=== PATIENT | female | born 2000 | race Caucasian/White ===

== ENCOUNTER → 2022-08-03 11:34 | Outpatient (BNVA) | payer OTHER, SELFPAY | PROVIDERS: Visit Provider Advanced Practice Midwife ==

== ENCOUNTER 2024-07-16 09:21 | Outpatient (AMB) | payer OTHER, SELFPAY ==
[2024-07-16 09:50] VITALS: BP 108/64; PULSE 83; TEMP 36.8; O2SAT 99; BMI 42.7
--- NOTE | 2024-07-16 09:50 | AM.OFFWIN_ITS ---
Intake Vital Signs 07/16/24 09:50 Height 5 ft 4 in Weight 248 lb 8 oz BMI 42.7 BP 108/64 Blood Pressure Location Lt brachial Position Sitting Pulse 83 Pulse Source Pulse Oximeter Temp 98.3 F Temp Source Oral Pulse Oximetry (%) 99 Oxygen Delivery Method Room Air Intake Visit Reasons: EP-sore throat, cough, chest pain Intake Note: Pt presents to the office today for c/o cough, and chest congestion that started this morning. Patient Tobacco Use Status: Never used Tobacco Allergies amoxicillin Allergy (Unknown, Verified 07/16/24 09:51) Rash Hives Penicillins [PENICILLINS] Allergy (Unknown, Verified 07/16/24 09:51) HIVES kiwi Allergy (Verified 07/16/24 09:51) hives, itchy venlafaxine Adverse Reaction (Intermediate, Verified 07/16/24 09:51) migraines apple Adverse Reaction (Verified 07/16/24 09:51) lip swollen Peanuts Allergy (Unknown, Uncoded 07/16/24 09:51) Hives, Rash HPI HPI Comments History of Present Illness Details History - The patient is a 24-year-old female pr esenting with chest tightness and cough x1 day. - Sudden onset of symptoms this morning at 5:30 with pain upon coughing, despite the use of a rescue inhaler. - No fever recorded, but mild shortness of breath and runny nose are present. - Job fatigue noted though not outside o f ordinary conditions due to her workload. - Denial of common gastrointestinal symp toms - Sick contact at home with a cough - Symptomatology began before sleeping l ast night but became significant upon waking. - Previous asthma-related pneumonia mayra bill with prednisone during early COVID- 19 pandemic.. Physical Exam General: Cooperative, healthy appearing, comfortable and no acute distress Orientation/consciousness: Patient oriented x3 Limitations: No limitations Head: Normal to inspection Ears: Hearing grossly normal bilaterally, external ears normal and TM's normal bilaterally Nose: Normal external nose present, Normal nares present and Yes nasal discharge present Face and sinus: Normal facial exam and Yes sinuses nontender Mouth: Normal oral and palatal mucosa present and moist mucous membranes Throat: Yes tonsils normal, Yes uvula midline. Posterior oropharynx erythema Eyes: Appearance normal, both eyes and all related structures Neck: Normal visual inspection Respiratory: Clear to auscultation bilaterally. Normal respiratory effort, able to speak in complete sentences, no respiratory distress, not tachypneic, no tripod positioning and no use of accessory muscles Cardiovascular: Regular rate and rhythm. Normal S1 and S2 Skin: No rashes or lesions noted Neuro: Patient oriented x3 Extremities: Normal to inspection and Yes no clubbing, cyanosis or edema [facility] Medical History (Updated 07/16/24 @ 10:19 by Za Carlos PA-C) Morbid obesity Mild intermittent asthma in adult without complication Generalized anxiety disorder Mixed dyslipidemia Low back pain Family history of thyroid disease Hypertriglyceridemia Family History (System 07/15/24 @ 12:47 by Za Henderson) Maternal Grandmother Hypertriglyceridemia Thyroid disease Diabetes mellitus Social History (System 07/15/24 @ 12:47 by Za Henderson) Housing: House Alcohol intake: current Alcohol intake frequency: holidays/special occasions only Patient Tobacco Use Status: Never used Tobacco e-Cigarette/Vaping Use: Never Used service: No Current occupational status: employed 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, 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 Flu, covid and RSV testing has been sent. The patient has been advised to start a six-day prednisone taper to manage the acute asthma flare presenting as chest tightness and cough, reflecting her past favorable response. The daily dosage is to be taken in the morning for maximum effectiveness and reduced insomnia risk. Testing for viral infections will clarify any additional treatment needs, with results expected shortly. Nebulizer use is endorsed for acute dyspnea management. Further antiviral intervention is deliberated given potential side effects unless symptom severity indicates necessity. The asthma exacerbation management will be adjusted upon feedback from test outcomes. Patient was informed and verbally consented to the use of an ambient scribe for clinic note documentation during this visit Orders: Orders SARS-CoV2/FLU/RSV Today R09.89 - Other specified symptoms and signs involving the circulatory and respiratory systems Medications: New methylprednisolone PO PER PKG DIR for 6 days 21 ea 0RF Coding Level of Care Code Est Pt Level 3 (24874) Diagnoses Acute viral syndrome B34.9
--- OUTSIDE RECORDS SUMMARY | 2024-07-16 10:20 | XMS_ITS | Encounter Summary ---
Author Organization [facility] Address [address] [place] [address] Phone Care Team Providers Care Car Salesperson Name Role Phone Unavailable Primary Care Provider Unavailabl e Reason for Visit * Reason Comments Med Refill Encounter Details Date Type Department Care Team (Late st Contact Info) Description 06/09/2017 Refill [facility] [place] [address] [place] [address] Shanta Ng NP 299 [facility] [address] [place] [address] Anxiety Social History Tobacco Use Types Packs/Day Years Used Date Smoking Tobacco: Never Smokeless Tobacco: Never Comments:Never smoker Alcohol Use Standard Drinks/Week Comments No 0 (1 standard drink = 0.6 oz pur e alcohol) Comments No Sex and Gender Information Value Date Recorded Sex Assigned at Not on file Legal Sex Female 5:16 PM EDT Gender Identity Not on file Sexual Orientation Not on file documented as of this encounter Miscellaneous Notes * Telephone Encounter - Guille Hernandez LPN - 06/11/2017 11:43 AM EST Pharm requesting refill on fluoxetine 20 mg. Lm for pt to call back. Pt needs to schedule apt in June for follow up also looks like script was only sent for 30 days in March with no refill. Consuelo like to know if pt was taking consistently? Pt states she started taking prozac on 05/13/17. Last PE 04/27/17. documented in this encounter Plan of Treatment Not on file documented as of this encounter Visit Diagnoses Diagnosis Anxiety Anxiety state, unspecified documented in this encounter
--- OUTSIDE RECORDS SUMMARY | 2024-07-16 10:20 | XMS_ITS | Clinical Summary ---
Author Organization [facility] Address [address] [place] [phone] Phone Care Team Providers Care Dado Operator Name Role Phone Unavailable Primary Care Provider Unavailabl e Allergies Active Allergy Reactions Criticality Noted Date Comments Amoxicillin Hives Peanuts (Food) Hives Medications FLUoxetine 20 MG capsuleIndication s:Anxiety Take 1 capsule (20 mg total) by mouth every morning. 30 capsule 2 8 Active Additional Information Patient not taking.Reported on 01/15/2018 albuterol HFA 108 (90 Base) MCG/ACT inhalerIndication s:Mild intermittent asthma without complication Inhale 2 puffs every 4 (four) hours as needed for wheezing or shortness of breath. 1 Units 8 Active Additional Information Patient not taking.Reported on 01/15/2018 Misc. Devices (WRIST BRACE) miscIndications:R ight wrist pain Soft semi-flexible right wrist brace 1 each 8 Active Additional Information Patient not taking.Reported on 05/14/2018 levonorgestrel-et hinyl estradiol 0.15-0.03 MG per tabletIndications :Encounter for surveillance of contraceptive pills,Dysmenorrhe a Take 1 tablet by mouth once daily. 28 tablet 12 9 Active Active Problems Problem Noted Date Diagnosed Date Refused influenza vaccine 04/25/2018 Reactive depression 10/03/2016 Family disruption 10/03/2016 Other hyperlipidemia 06/28/2016 Adjustment reaction with anxiety 01/27/2015 Childhood obesity 11/16/2011 Other atopic dermatitis 11/16/2011 Mild intermittent asthma without complication Assessment & Plan (02/13/2017 6:13 PM EDT): stable Resolved Problems Problem Noted Date Diagnosed Date Resolved Date Cellulitis of right external ear 05/26/2017 06/06/2017 Immunizations Immunization Administration Dates Next Due DTaP 5 04/06/2003, 1,1999, 000,1999 H1N1 03/02/2009 HPV, Quadrivalent 11/16/2011,12/06/2010,09/14/19 11 Hep A, ped/adol 05/23/2013,09/13/2010 Hep B, ped/adol 04/02/2000,1999,1999 Hib (PRP-T) 07/09/2000, 0,1999, 000 IPV 04/06/2003, 1,1999, 000 Influenza, injectable, quadrivalent 03/01/2015 Influenza, injectable, trivalent 04/26/2009,03/30 MMR 04/06/2003,04/02/2000 Meningococcal B Trumenba 05/14/2018 Meningococcal Conj (Menactra) MCV4P 04/27/2017,0 09/13/2010 Pneumococcal Conjugate 07/09/2000,04/02/2000,11/1999 Tdap 09/13/2010 Varicella 07/28/2008,04/02/2000 Family History Medical History Relation Name Comments Diabetes Mother nery Relation Name Status Comments Father [place] Alive Father: acid re flux Maternal Grandfather Materna l grandfather: Cancer -liver Mother nery Alive Mother: Obesity , Asthma Other Family history of *Heart Disease, No family history of *CVA/Stroke, Family history of *Sudden /OK under 55, Family history of aneurysm, No family history of *Dental caries Paternal Grandfather Alive Paterna l grandfather: Cancer Paternal Grandmother Alive Korey l grandmother: Heart disease Social History Tobacco Use Types Packs/Day Years Used Date Smoking Tobacco: Never Smokeless Tobacco: Never Tobacco Cessation:Counseling Given: Yes Comments:Never smoker Alcohol Use Standard Drinks/Week Comments No 0 (1 standard drink = 0.6 oz pur e alcohol) Hunger/Food Answer Date Recorded No 05/15/2018 Stable Housing Answer Date Recorded 0 05/15/2018 Transportation Concerns Answer Date Rec orded No 05/15/2018 Hazards in Home Answer Date Recorded No 05/15/2018 Financing Utilities Answer Date Recorde d No 05/15/2018 Safety at Home Answer Date Recorded No 05/15/2018 Outside Support Answer Date Recorded No 05/15/2018 Understanding Health Concerns Answer Da te Recorded No 05/15/2018 Financing Health Concerns Answer Date R ecorded No 05/15/2018 Missing School or Work Answer Date Rom rded No 05/15/2018 Comments No Sex and Gender Information Value Date Recorded Sex Assigned at Not on file Legal Sex Female 5:16 PM EDT Gender Identity Not on file Sexual Orientation Not on file Last Filed Vital Signs Vital Sign Reading Time Taken Comments Blood Pressure 122/74 05/14/2018 8:28 AM EST Pulse 67 05/14/2018 8:28 AM EST Temperature 36.7 ??C (98 ??F) 01/15/2018 3:39 PM EDT Respiratory Rate - - Oxygen Saturation - - Inhaled Oxygen Concentration - - Weight 93 kg (205 lb) 05/14/2018 8:28 AM EST Height 163.8 cm (5' 4.5 ) 05/14/2018 8:28 AM EST Body Mass Index 34.64 05/14/2018 8:28 AM EST Plan of Treatment Health Maintenance Due Date Last Done Comments Men B Vaccine (2 of 2 - Trum enba SCDM 2-dose series) 11/11/2018 05/14/2018 DTaP,Tdap,and Td Vaccines (7 - Td or Tdap) 09/13/2020 09/13/2010, 04/06/2003, 10/01/2000, Additional history exists Influenza Vaccines (#1) 2023 03/01/20 15, 04/26/2009, 04/12/2006 COVID-19 Vaccine (2023-2 5 season) 2023 Hepatitis B Vaccines Completed 04/02/2000, 1999, 1999 HIB Vaccines Completed 07/09/2000, 05/1999, 1999, Additional history exists Pneumococcal Vaccine Completed 07/09/2000, 04/02/2000, 01/06/2000 IPV Vaccines Completed 04/06/2003, 07/2000, 1999, Additional history exists MMR Vaccines Completed 04/06/2003, 04/02/2000 Varicella Vaccines Completed 07/28/2008, 04/02/2000 HPV Vaccines Completed 11/16/2011, 08/12/2010, 09/13/2010 Hepatitis A Vaccines Completed 05/23/2013, 09/14/19 11 Meningococcal Vaccine Completed 04/27/2017, 011 Procedures * Due to [facility] law, this organization might not be sharing sensitive test results. Procedure Name Priority Date/Time Associated Diagnosis Comments CHLAMYDIA AND GONORRHEA, AMPLIFIED Routine 05/14/2018 8:45 AM EST Screening examination for bacterial and spirochetal disease from Last 3 Months or Most Recently Relevant to Health Maintenance Results * Due to [place] law, this organization might not be sharing sensitive test results. * Chlamydia and Gonorrhoea, Amplified (05/14/2018 8:45 AM EST) Chlamydia Trachomatis, DNA Probe NEGATIVE (NEG) [facility] Comment: No Chlamydia Trachomatis RNA detected in this patient's sample ? (REFERENCE RANGE/NORMAL VALUE: NOT DETECTED) ? Note: This test uses teen counselor- mediated amplification method to detect rRNA from C. Trachomatis URINE GC AMP PROBE NEGATIVE (NEG) [facility] Comment: No Neisseria Gonorrhoeae RNA detected in this patient's sample ? (REFERENCE RANGE/NORMAL VALUE: NOT DETECTED) ? NOTE: This test uses teen counselor-mediated amplification method to detect rRNA from N.Gonorrhoeae. A negative result does not preclude infection. In the case of a negative urine result, testing of an endocervical(female) or urethral (male) specimen is recommended if there is high clinical suspicion of infection. Due to very high sensitivity of Nucleic Acid Amplification Test, false positive results may occur. Therefore, specimen handling is extremely important. In patients in whom the disease is unlikely, additional sample for testing should be considered after an initial positive result. The performance characteristics of this test have not been evaluated in children. The Aptima Combo2 assay is not intended for the evaluation of suspected sexual abuse or for other medico-legal indications. The ordering provider should assess if the patient had consensual sex without risk of sexual abuse. Consult the [facility] if needed. Contact phone number . Therapeutic failure or success cannot be determined with the Aptima Combo2 assay since nucleic acid may persist following appropriate antimicrobial therapy. The Centers for Disease Control and Prevention (CDC) recommends confirmatory retesting using culture or a different nucleic acid amplification test when positive results occur, if indicated. Testing performed or reported by [facility], a Service of [facility], [facility] [place] [address] CLIA [id number] Thomas Walden MD, Engineering Specialist Urine 05/14/2018 8:45 AM EST 05/14/2018 10:24 PM EST us Shanta Ng NP LAB MICROBIOLOGY - GENERAL ORDER GENESIS Final Result [facility] from Last 3 Months or Most Recently Relevant to Health Maintenance Insurance [facility] NON [facility] PPO
--- OUTSIDE RECORDS SUMMARY | 2024-07-16 10:20 | XMS_ITS | Encounter Summary ---
Author Organization [facility] Address [address] [place] [phone] Phone Care Team Providers Care Extension Edger Name Role Phone Unavailable Primary Care Provider Unavailabl e Encounter Details Date Type Department Care Team (Late st Contact Info) Description 09/26/2016 Documentation [facility] [place] [address] Family Medicine, Physician [address] [place] [address] [phone] Social History Tobacco Use Types Packs/Day Years Used Date Smoking Tobacco: Never Assessed Comments Unknown Sex and Gender Information Value Date Recorded Sex Assigned at Not on file Legal Sex Female 5:16 PM EDT Gender Identity Not on file Sexual Orientation Not on file documented as of this encounter Plan of Treatment Not on file documented as of this encounter Visit Diagnoses Not on filedocumented in this encounter
--- OUTSIDE RECORDS SUMMARY | 2024-07-16 10:21 | XMS_ITS | Clinical Summary ---
Author Organization [facility] Address [address] [place] [address] Care Team Providers Care Donation Worker Name Role Phone Unavailable Primary Care Provider Unavailabl e Social History Tobacco Use Types Packs/Day Years Used Date Smoking Tobacco: Never Assessed Comments Unknown Sex and Gender Information Value Date Recorded Sex Assigned at Not on file Legal Sex Female 10:57 AM EST Gender Identity Not on file Sexual Orientation Not on file Last Filed Vital Signs Vital Sign Reading Time Taken Comments Blood Pressure - - Pulse - - Temperature - - Respiratory Rate - - Oxygen Saturation - - Inhaled Oxygen Concentration - - Weight 104 kg (230 lb) 01/24/2023 8:45 AM EDT Height 162.6 cm (5' 4 ) 01/24/2023 8:45 AM EDT Body Mass Index 39.48 01/24/2023 8:45 AM EDT Plan of Treatment Health Maintenance Due Date Last Done Comments HPV Vaccines (1 - 3-dose series) 2014 DTaP,Tdap,and Td Vaccines (1 - Tdap) 2018 Hepatitis B Vaccines (1 of 3 - 19+ 3-dose series) 2018 Cervical Cancer Screening: P ap Smear 2020 Depression Screening 03/28/2022 HIV Screening 03/28/2022 Hepatitis C Screening 03/28/2022 Social Influencers of Health Screening 03/28/2022 COVID-19 Vaccine ( - 2023-2 5 season) 2023 Influenza Vaccine (#1) 2023 HIB Vaccines Aged Out No longer eligi ble based on patient's age to complete this topic Hepatitis A Vaccines Aged Out No long er eligible based on patient's age to complete this topic IPV Vaccines Aged Out No longer eligi ble based on patient's age to complete this topic MMR Vaccines Aged Out No longer eligi ble based on patient's age to complete this topic Meningococcal ACWY Vaccine Aged Out N o longer eligible based on patient's age to complete this topic Meningococcal B Vacine Aged Out No lo nger eligible based on patient's age to complete this topic Pneumococcal Vaccine: Pediat rics (0 to 5 Years) and At-Risk Patients (6 to 64 Years) Aged Out No longer eligible b ased on patient's age to complete this topic RSV Immunization Patients Un dilshad 20 months Aged Out No longer eligible b ased on patient's age to complete this topic Varicella Vaccines Aged Out No longer eligible based on patient's age to complete this topic
--- OUTSIDE RECORDS SUMMARY | 2024-07-16 10:21 | XMS_ITS | Encounter Summary ---
Author Organization [facility] Address [address] [place] [address] Phone Care Team Providers Care Waste Water Or Water Plant Operator Name Role Phone Unavailable Primary Care Provider Unavailabl e Encounter Details Date Type Department Care Team (Late st Contact Info) Description 01/18/2010 Documentation [facility] [place] [address] Family Medicine, Physician [address] [place] [phone] Social History Tobacco Use Types Packs/Day Years [...]
--- OUTSIDE RECORDS SUMMARY | 2024-07-16 10:21 | XMS_ITS | Encounter Summary ---
Author Organization [facility] Address [address] [place] [phone] Phone Care Team Providers Care Revenue Stamper Name Role Phone Unavailable Primary Care Provider Unavailabl e Encounter Details Date Type Department Care Team (Late st Contact Info) Description 03/01/2017 Conversion Encounter [facility] - [address] [phone] Social History Tobacco Use Types Packs/Day Years Used Date Smoking Tobacco: Never Comments:Never smoker Comments No Sex and Gender Information Value Date Recorded Sex Assigned at Not on file Legal Sex Female 5:16 PM EDT Gender Identity Not on file Sexual Orientation Not on file documented as of this encounter Plan of Treatment Not on file documented as of this encounter Visit Diagnoses Not on filedocumented in this encounter
--- OUTSIDE RECORDS SUMMARY | 2024-07-16 10:21 | XMS_ITS | Encounter Summary ---
Author Organization [facility] Address [address] [place] [address] Phone Care Team Providers Care Leather Case Finisher Name Role Phone Unavailable Primary Care Provider Unavailabl e Reason for Visit * Reason Comments Med Refill Encounter Details Date Type Department Care Team (Late st Contact Info) Description 12/23/2017 Refill [facility] [place] [address] [place] [address] Shanta Ng NP 299 [facility] [address] [place] [address] Encounter for surveillance of contraceptive pills; Dysmenorrhea Social History Tobacco Use Types Packs/Day Years [...] encounter Miscellaneous Notes * Telephone Encounter - Rebecca Teixeira LPN - 12/23/2017 9:02 AM EDT LEVONOR-ETH ESTRAD 0.15-0.03 Last pe 04/15 documented in this encounter Plan of Treatment Not on file documented as of this encounter Visit Diagnoses Diagnosis Encounter for surveillance of contraceptive pills Dysmenorrhea documented in this encounter
--- OUTSIDE RECORDS SUMMARY | 2024-07-16 10:21 | XMS_ITS | Encounter Summary ---
Author Organization [facility] Address [address] [place] [address] Phone Care Team Providers Care Silk Screen Cutter Name Role Phone Unavailable Primary Care Provider Unavailabl e Reason for Visit * Reason Comments Med Refill Encounter Details Date Type Department Care Team (Late st Contact Info) Description 01/14/2018 Refill [facility] [place] [address] [place] [address] Shanta Ng NP 299 [facility] [address] [place] [address] Anxiety (Primary Dx) Social History Tobacco Use Types Packs/Day Years [...] encounter Miscellaneous Notes * Telephone Encounter - Shanta Ng NP - 01/16/2018 1:08 PM EDT Agree with triage advice/plan Fluoxetine discontinued by patient * Telephone Encounter - Marisel Andrews LPN - 01/14/2018 10:09 AM EDT Refill request for fluoxetine. Last PE 04/27/17. Last med FU 10/26/17/JOD documented in this encounter Plan of Treatment Not on file documented as of this encounter Visit Diagnoses Diagnosis Anxiety- Primary Anxiety state, unspecified documented in this encounter
--- OUTSIDE RECORDS SUMMARY | 2024-07-16 10:21 | XMS_ITS | Encounter Summary ---
Author Organization [facility] Address [address] [place] [phone] Phone Care Team Providers Care Gyro Compass Tester Name Role Phone Unavailable Primary Care Provider Unavailabl e Encounter Details Date Type Department Care Team (Late st Contact Info) Description 06/30/2011 Documentation [facility] [place] [address] Family Medicine, Physician [address] [place] [phone] Social History Tobacco Use Types Packs/Day Years [...]
== END 2024-07-16 10:21 | disposition home or self-care (01) ==
PROVIDERS: PCP Internal Medicine; Visit Provider Physician Assistant
DX: B34.9 Viral infection, unspecified (principal)

== ENCOUNTER 2024-07-16 09:21 | Outpatient (REF) | payer OTHER, SELFPAY ==
[2024-07-16 14:07] LABS: Influenza A PCR NEGATIVE (Negative); Influenza B PCR NEGATIVE (Negative); Resp Syncy Virus RNA Qual PCR NEGATIVE (Negative); SARS COV2 PCR INHOUSE NEGATIVE (Negative)
== END 2024-07-16 09:22 | disposition home or self-care (01) ==
LOC: HO.LAB 09:21
PROVIDERS: PCP Internal Medicine; Visit Provider Physician Assistant
DX: R09.89 Other specified symptoms and signs involving the circulatory and respiratory systems (principal); B34.9 Viral infection, unspecified
CPT/HCPCS: 0241U; 99212

== ENCOUNTER 2025-04-21 07:58 | Outpatient (REF) | payer OTHER, SELFPAY ==
--- OUTSIDE RECORDS SUMMARY | 2025-04-21 08:01 | XMS_ITS | Clinical Summary ---
Author Organization [facility] Address [address] [place] [address] Phone Care Team Providers Care Commercial Representative Name Role Phone Physician, Pcp Unknown Primary Care Provider Kimmy vailable Medications silver sulfADIAZINE (Silvadene) 1 % cream Apply topically 1 (one) time each day. 50 g 5 08/21/19 26 Active Social History Tobacco Use Types Packs/Day Years [...] - - Weight 104 kg (230 lb) 08/20/2024 9:13 AM EDT Height 162.6 cm (5' 4.02 ) 08/20/2024 9:13 AM ED T Body Mass Index 39.46 08/20/2024 9:13 AM EDT Plan of Treatment Health Maintenance Due Date Last Done Comments Pneumococcal Vaccine: Pediatrics (0 to 5 Years) and At-Risk Patients (6 to 49 Years) (1 of 1 - PPSV23, PCV20, or PCV21) 2005 07/09/2000, 04/02/2000, 01/06/2000 Meningococcal B Vaccine (2 of 2 - Trumenba SCDM 2-dose series) 11/11/2018 05/14/2018 Cervical Cancer Screening: Pap Smear 2020 DTaP,Tdap,and Td Vaccines (7 - Td or Tdap) 09/13/2020 09/13/2010, 04/06/2003, 10/01/2000, Additional history exists Cholesterol Screening (Lipid Panel) 03/28/2022 HIV Screening 03/28/2022 Hepatitis C Screening 03/28/2022 Social Influencers of Health Screening 03/28/2022 Depression Screening 04/30/2024 COVID-19 Vaccine ( season) 2024 Influenza Vaccine (#1) 2024 5, 04/26/2009, 03/02/2009, Additional history exists RSV Immunization Adult Patients (1 - 1-dose 75+ series) 2074 Hepatitis B Vaccines Completed 04/02/2000, 1999, 1999 HIB Vaccines Completed 07/09/2000, 05/1999, 1999, Additional history exists IPV Vaccines Completed 04/06/2003, 07/2000, 1999, Additional history exists MMR Vaccines Completed 04/06/2003, 04/02/2000 Varicella Vaccines Completed 07/28/2008, 04/02/2000 HPV Vaccines Completed 11/16/2011, 12/2010, 09/13/2010 Hepatitis A Vaccines Completed 05/23/2013, 09/14/19 11 Meningococcal ACWY Vaccine Completed 04/27/2017, RSV Immunization Patients Under 20 months Aged Out No longer eligible based on patient's age to complete this topic Insurance MEDICAID - [place] [facility] [employer] Care Teams Commercial Representative Relationship Specialty Start Date End Date Physician, Pcp Unknown PCP - General 07/25/24
[2025-04-21 11:05] LABS: Alanine Aminotransferase 50 U/L (0-31); Aspartate Amino Transferase 49 U/L (5-31); Cholesterol 170 mg/dL (<200); HDL Cholesterol 44 mg/dL (>40); Triglycerides 158 mg/dL (<150)
== END 2025-04-21 07:59 | disposition home or self-care (01) ==
LOC: HO.HMGCLDS 07:58
PROVIDERS: PCP Internal Medicine; Visit Provider Internal Medicine
DX: E66.01 Morbid (severe) obesity due to excess calories (principal); E78.2 Mixed hyperlipidemia; R73.01 Impaired fasting glucose
CPT/HCPCS: 36415; 80061; 82947; 83036; 84450; 84460